=== PATIENT | male | born 1960 | race Caucasian/White ===

== ENCOUNTER 2017-03-09 09:21 | Emergency (ER) | payer SELFPAY ==
[~2017-03-09] VITALS: Ht 185.4 cm; Wt 100.0 kg
[2017-03-09 09:27] VITALS: BP 136/82; PULSE 79; RESP 18; TEMP 98.5; O2SAT 97
[2017-03-09] MEDS ORDERED: SODIUM CHLOR 0.9% 1000 ML INJ 1,000 ML IV ONE (09:31)
--- NOTE | 2017-03-09 09:37 | PD ---
HPI Chief Complaint: Seizure Time Seen by Provider: 09:30 Travel History International Travel<30 days: No Contact w/Intl Traveler<30days: No Traveled to known affect area: No History of Present Illness HPI Patient comes in via EMS for reported seizure that was witnessed by his . Per EMS patient was post ictal since recovered. Patient denies any history of seizure. Patient's only complaint currently is Pain bilateral calves. Patient was reportedly given a dose of lisinopril, aspirin, and naproxen by his last night. Patient states he is supposed be on lisinopril but has not taken it for a while as he has been out of his prescription. Patient is also supposed be on metformin but states he's been keeping his blood sugars controlled and not neeed the medication. 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 Patient denies any chest pain, shortness of breath, nausea, vomiting, change in vision,numbness or tingling anywhere, loss or change of bowel or bladder, fevers, or headaches. Patient reports he only drinks occasionally. PFSH Past Medical History Cerebrovascular Accident: Yes Diabetes: Yes Patient Takes Glucophage: No Hypertension: Yes Past Surgical History Surgical History: No Previous Surgery Social History Alcohol Use: Yes (OCCASSIONALLY) Tobacco Use: Yes (1 PPD) Substance Use: No Allergies-Medications (Allergen,Severity, Reaction): Coded Allergies: No Known Allergies (Verified Allergy, Unknown, 03/09/17) Review of Systems Except as stated in HPI: all other systems reviewed are Neg Physical Exam Narrative GENERAL: Well-developed, well nourished, in no acute distress, and non-ill appearing. SKIN: Focused skin assessment warm and dry. HEAD: Atraumatic. Normocephalic. EYES: Pupils equal and round. EOMI. No scleral icterus. No injection or drainage. ENT: No nasal bleeding or discharge. Mucous membranes pink and moist. NECK: Trachea midline. No JVD. Supple. No nuclear rigidity. CARDIOVASCULAR: Regular rate and rhythm. No murmur appreciated. RESPIRATORY: No accessory muscle use. No respiratory distress. Clear to auscultation. Breath sounds equal bilaterally. GASTROINTESTINAL: Abdomen soft, non-tender, nondistended, and no guarding. Hepatic and splenic margins not palpable. No pulsatile mass. MUSCULOSKELETAL: No obvious deformities. No clubbing. No cyanosis. No edema. Full range of motion. NEUROLOGICAL: Awake and alert. No obvious cranial nerve deficits. Motor grossly within normal limits. Normal speech. PSYCHIATRIC: Appropriate mood and affect; insight and judgment normal. Data Data Last Documented VS Vital Signs Date Time Temp Pulse Resp B/P (MAP) Pulse Ox O2 Delivery O2 Flow Rate FiO2 03/09/17 11:06 87 18 137/99 (112) 98 03/09/17 10:11 Room Air 03/09/17 09:27 98.5 Orders Orders Complete Blood Count With Diff (03/09/17 09:31) Basic Metabolic Panel (Bmp) (03/09/17 09:31) Alcohol (Ethanol) (03/09/17 09:31) Drug Screen, Random Urine (03/09/17 09:31) Electrocardiogram (03/09/17 ) Ct Brain W/O Iv Contrast(Rout) (03/09/17 ) Blood Glucose (03/09/17 09:31) Ecg Monitoring (03/09/17 09:31) Iv Access Insert/Monitor (03/09/17 09:31) Oximetry (03/09/17 09:31) Sodium Chlor 0.9% 1000 Ml Inj (Ns 1000 M (03/09/17 09:31) Sodium Chloride 0.9% Flush (Ns Flush) (03/09/17 09:45) Urinalysis - C+S If Indicated (03/09/17 09:31) Creatine Kinase (Cpk) (03/09/17 09:31) Magnesium (Mg) (03/09/17 09:31) Labs Laboratory Tests Test 03/09/17 09:36 White Blood Count 6.2 TH/MM3 Red Blood Count 4.19 MIL/MM3 Hemoglobin 14.2 GM/DL Hematocrit 41.9 % Mean Corpuscular Volume 100.2 FL Mean Corpuscular Hemoglobin 34.0 PG Mean Corpuscular Hemoglobin Concent 34.0 % Red Cell Distribution Width 13.5 % Platelet Count 212 TH/MM3 Mean Platelet Volume 8.5 FL Neutrophils (%) (Auto) 75.8 % Lymphocytes (%) (Auto) 12.9 % Monocytes (%) (Auto) 9.1 % Eosinophils (%) (Auto) 1.6 % Basophils (%) (Auto) 0.6 % Neutrophils # (Auto) 4.7 TH/MM3 Lymphocytes # (Auto) 0.8 TH/MM3 Monocytes # (Auto) 0.6 TH/MM3 Eosinophils # (Auto) 0.1 TH/MM3 Basophils # (Auto) 0.0 TH/MM3 CBC Comment DIFF FINAL Differential Comment Urine Color YELLOW Urine Turbidity HAZY Urine pH 5.5 Urine Specific Mobile 1.025 Urine Protein 100 mg/dL Urine Glucose (UA) NEG mg/dL Urine Ketones 40 mg/dL Urine Occult Blood NEG Urine Nitrite NEG Urine Bilirubin NEG Urine Urobilinogen 2.0 MG/DL Urine Leukocyte Esterase NEG Urine RBC 1 /hpf Urine WBC 1 /hpf Urine Hyaline Casts 10 /lpf Urine Mucus FEW /lpf Microscopic Urinalysis Comment CULT NOT INDICATED Blood Urea Nitrogen 14 MG/DL Creatinine 1.30 MG/DL Random Glucose 160 MG/DL Calcium Level 8.8 MG/DL Magnesium Level 2.0 MG/DL Sodium Level 134 MEQ/L Potassium Level 3.7 MEQ/L Chloride Level 101 MEQ/L Carbon Dioxide Level 23.8 MEQ/L Anion Gap 9 MEQ/L Estimat Glomerular Filtration Rate 57 ML/MIN Total Creatine Kinase 164 U/L Urine Opiates Screen NEG Urine Barbiturates Screen NEG Urine Amphetamines Screen POS Urine Benzodiazepines Screen NEG Urine Cocaine Screen POS Urine Cannabinoids Screen NEG Ethyl Alcohol Level LESS THAN 3 MG/DL MDM Medical Decision Making Medical Screen Exam Complete: Yes Emergency Medical Condition: Yes Interpretation(s) EKG reviewed by Dr. Rahman shows sinus rhythm ventricular is 73. No STEMI. CT head read by the radiologist shows: 1. 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 2. No evidence of acute infarct, hemorrhage, mass or edema. Differential Diagnosis Seizure, electrolyte abnormality, tumor, dehydration, rhabdomyolysis, UTI, other Narrative Course The patient presented with new onset seizure. The patient looks great and has returned to baseline. There is no evidence clinically to suggest meningitis or metabolic etiology. Laboratory exam and CT were normal with exception of polysubstance use. The patient appears well hydrated and nontoxic. Clinical suspicion was discussed with patient. Plan of care, with no initiation of medications at this time and follow up with neurology is mandatory for outpatient studies such as possible MRI or EEG. The patient was reassured and discharged home in agreement with plan of care. They were instructed to return as needed or if recurred prior to follow up with neurology. The patient was also informed that they may not drive or operated heavy machinery due to the fact that they may have a seizure and cause injury or to themselves or others. They may not drive or operate heavy machinery until cleared by a neurologist. Patient in no obvious distress upon re-evaluation. All pertinent laboratory/ Radiology result(s) discussed with patient/family. Discussed patient with Dr. Cervantes prior to discharge, who is in agreement with plan of care and disposition. Any questions/concerns in reference to patient diagnosis/condition discussed and clarified prior to patient's discharge. Reinforced sheer importance of close follow up with patient's primary physician or primary care clinic and neurologist. Instructed patient to return to ED immediately, if symptoms return/ worsen. Pt showed understanding of above instructions. Further instructions and recommendations were detailed in discharge paperwork. Pt ambulated without difficulty out of ED at discharge. Diagnosis Primary Impression: Seizure Additional Impression: Substance abuse Referrals: Loco Denise PhD MD Patient Instructions: General Instructions, New-Onset Seizure in Adults (ED), Polysubstance Abuse (ED) Additional Instructions: Follow-up with your primary care physician and neurology as soon as possible for reevaluation. Do not drive or operate heavy machinery until cleared by neurologist. Stop doing drugs. Return to the emergency department if symptoms get worse. Disposition: 01 DISCHARGE HOME Condition: Stable Pardeep Jones Mar 09, 2017 09:37
[2017-03-09] MEDS ORDERED: SODIUM CHLORIDE 0.9% FLUSH 10 ML FLUSH IVF PRN (09:45)
[2017-03-09 09:55] LABS: AUTOMATED NEUTROPHIL # 4.7 TH/MM3 (1.8-7.7); BASOPHIL % 0.6 % (0.0-2.0); EOSINOPHIL # 0.1 TH/MM3 (0-0.4); EOSINOPHIL % 1.6 % (0.0-4.0); HEMATOCRIT 41.9 % (39.0-51.0); HEMO FLAGS DIFF FINAL; LYMPH % 12.9 % (9.0-44.0); LYMPHOCYTE # 0.8 TH/MM3 (1.0-4.8); MEAN CELL VOLUME 100.2 FL (80.0-100.0); MONO % 9.1 % (0.0-8.0); NEUT % 75.8 % (16.0-70.0); PLATELET COUNT 212 TH/MM3 (150-450); RED BLOOD COUNT 4.19 MIL/MM3 (4.50-5.90); RED CELL DISTRIBUTION WIDTH 13.5 % (11.6-17.2); WHITE BLOOD COUNT 6.2 TH/MM3 (4.0-11.0)
[2017-03-09 10:02] LABS: BLOOD, URINE NEG (NEG); COMMENT (UR) CULT NOT INDICATED; CULTURE IF INDICATED CULT NOT INDICATED; GLUCOSE,URINE NEG (NEG); HYALINE CAST, URINE 10 /lpf (RARE); KETONE, URINE 40 mg/dL (NEG); MUCUS URINE FEW /lpf (OCC); NITRITE,URINE NEG (NEG); PH, URINE 5.5 (5.0-8.5); URINE COLOR YELLOW (YELLW/STRAW)
[2017-03-09 10:05] LABS: ANION GAP 9 MEQ/L (5-15); BICARBONATE 23.8 MEQ/L (21.0-32.0); BLOOD UREA NITROGEN 14 MG/DL (7-18); CHLORIDE 101 MEQ/L (98-107); GLOMERULAR FILTRATION RATE 57 ML/MIN (>89); POTASSIUM 3.7 MEQ/L (3.5-5.1); SODIUM (NA) 134 MEQ/L (136-145)
[2017-03-09 10:08] LABS: CREATINE KINASE 164 U/L (39-308)
[2017-03-09 10:10] LABS: ALCOHOL LESS THAN 3 MG/DL (0-5)
[2017-03-09 10:11] VITALS: O2SAT 97
--- NOTE | 2017-03-09 10:31 | RADRPT ---
EXAM DATE/TIME: 03/09/2017 10:13 [facility] COMPARISON: No previous studies available for comparison. INDICATIONS : sEIZURE. RADIATION DOSE: 56.35 CTDIvol (mGy) MEDICAL HISTORY : Hypertension. Diabetes. SURGICAL HISTORY : None. ENCOUNTER: Initial ACUITY: 1 day PAIN SCALE: 0/10 LOCATION: cranial TECHNIQUE: Multiple contiguous axial images were obtained of the head. Using automated exposure control and adj ustment of the mA and/or kV according to patient size, radiation dose was kept as low as reasonably a chievable to obtain optimal diagnostic quality images. DICOM format image data is available electro nically for review and comparison. FINDINGS: CEREBRUM: A focal area of encephalomalacia is identified in the right temporoparietal region. There is focal vo lume loss and adjacent enlargement of the CSF space. The cerebral hemispheres are otherwise unremarka ble. There is no evidence of acute infarct or hemorrhage. There is no mass effect or shift of midline structures. POSTERIOR FOSSA: The cerebellum and brainstem are intact. The 4th ventricle is midline. The cerebellopontine angle i s unremarkable. EXTRACRANIAL: The visualized portion of the orbits is intact. SKULL: The calvaria is intact. No evidence of skull fracture. CONCLUSION: 1. 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 2. No evidence of acute infarct, hemorrhage, mass or edema. Ronnell Carrera MD on March 09, 2017 at 10:27 Board Certified Radiologist. This report was verified electronically.
[2017-03-09 11:06] VITALS: BP 137/99
--- NOTE | 2017-03-10 14:08 | EKG ---
Date Performed: 03/09/2017 Time Performed: 09:58:59 PTAGE: 56 years EKG: Sinus rhythm NORMAL ECG NO PREVIOUS TRACING DOCTOR: Nafisa Holloway Interpretating Date/Time 03/10/2017 14:05:53
== END 2017-03-09 11:13 | disposition home or self-care (01) ==
LOC: NEPE 09:21
DX: R56.9 Unspecified convulsions (principal); F19.10 Other psychoactive substance abuse, uncomplicated; I10 Essential (primary) hypertension; E11.9 Type 2 diabetes mellitus without complications; Z72.0 Tobacco use
CPT/HCPCS: 70450; 80048; 80307; 81001; 82550; 83735; 85025; 93005; 99284; J7030